=== PATIENT | female | born 1970 | race Caucasian/White ===

== ENCOUNTER 2022-06-07 11:29 | Outpatient (CLI) | payer OTHER, SELFPAY ==
[2022-06-07 21:49] LABS: Chloride* 101 mmol/L (96-114)
[2022-06-07 21:52] LABS: Albumin* 4.8 g/dL (3.3-5.0); Creatinine* 1.4 mg/dL (0.5-1.5); Estimated Glomerular Filt Rate 46 ml/min; Potassium* 4.2 mmol/L (3.6-5.1); Sodium* 140 mmol/L (135-149)
[2022-06-07 21:53] LABS: Alanine Aminotransferase* 46 U/L (4-35); Alkaline Phosphatase* 200 U/L (40-150); Aspartate Amino Transferase* 68 U/L (12-35); Bilirubin Total* 1.1 mg/dL (0.1-1.5); Blood Urea Nitrogen* 27 mg/dL (7-30); Carbon Dioxide* 25 mmol/L (20-32); Glucose* 98 mg/dL (60-115); Total Protein* 8.2 g/dL (6.0-8.3)
[2022-06-07 21:54] LABS: Calcium* 9.7 mg/dL (8.4-10.6)
== END 2022-06-07 11:30 | disposition home or self-care (01) ==
LOC: FRMREF 11:30
PROVIDERS: Visit Provider Dermatology
DX: Z79.899 Other long term (current) drug therapy (principal); L40.9 Psoriasis, unspecified
CPT/HCPCS: 80053

== ENCOUNTER 2022-06-20 10:22 | Outpatient (CLI) | payer OTHER, SELFPAY ==
--- NOTE | 2022-06-20 10:15 | CRLHL7_ITS ---
For Patients: As a result of the Century Cures Act, medical imaging exams and procedure reports are released immediately into your electronic medical record. You may view this report before your referring provider. If you have questions, please contact your health care provider. BILATERAL SCREENING MAMMOGRAM WITH COMPUTER-AIDED DETECTION AND TOMOSYNTHESIS TECHNIQUE: CC and MLO views were obtained. These mammographic images have been obtained using full-field digital technique. These mammographic images were interpreted with the benefit of computer-aided detection. Breast Tomosynthesis was used in this interpretation. COMPARISON FILM: 09/11/19, 12/23/17, 05/16/16. FINDINGS: There are scattered areas of fibroglandular density IMPRESSION: There is no radiographic evidence for malignancy. ASSESSMENT: BI-RADS Category 1: Negative RECOMMENDATION: Routine screening mammogram in 1 year. A lay language report of this examination will be provided to the patient. Robbie Franco M.D. Diagnostic Radiologist [email or web address] SANTOSH/Dictated by: Robbie Franco MD @ 06/22/2022 9:07:00 AM (Electronically Signed)
== END 2022-06-20 10:23 | disposition home or self-care (01) ==
LOC: MAMMO 10:24
PROVIDERS: Visit Provider Nurse Practitioner Family
DX: Z12.31 Encounter for screening mammogram for malignant neoplasm of breast (principal)
CPT/HCPCS: 77063; 77067

== ENCOUNTER 2022-09-28 13:57 | Outpatient (CLI) | payer OTHER, SELFPAY ==
[2022-09-28 16:22] LABS: Basophils Absolute Auto 0.03 K/uL (0.00-0.30); Basophils Percent Auto 0.6 % (0.0-3.0); Eosinophils Absolute Auto 0.16 K/uL (0.00-0.50); Eosinophils Percent Auto 3.1 % (0.0-7.0); Hematocrit 44.5 % (33.0-51.0); Hemoglobin* 14.7 gm/dL (12.0-16.0); Lymphocytes Absolute Auto 1.43 K/uL (0.90-2.90); Lymphocytes Percent Auto 27.9 % (20-44); Mean Corpuscular HGB Conc 33 gm/dL (32-36); Mean Corpuscular Hemoglobin 33 pg (26-34); Mean Corpuscular Volume 101 fL (80-100); Monocytes Percent Auto 8.8 % (0.0-11.0); Neutrophils Absolute Auto 3.06 K/uL (1.7-7.0); Neutrophils Percent Auto 59.6 % (42.0-72.0); Platelet Count* 259 K/uL (140-440); White Blood Count* 5.13 K/uL (4.50-11.00)
[2022-09-28 16:31] LABS: Chloride* 108 mmol/L (96-114)
[2022-09-28 16:32] LABS: Potassium* 4.4 mmol/L (3.6-5.1); Sodium* 143 mmol/L (135-149)
[2022-09-28 16:34] LABS: Creatinine* 0.7 mg/dL (0.5-1.5); Estimated Glomerular Filt Rate 105 ml/min; Slide Review Reflex No
[2022-09-28 16:35] LABS: Blood Urea Nitrogen* 12 mg/dL (7-30); Calcium* 9.9 mg/dL (8.4-10.6); Carbon Dioxide* 22 mmol/L (20-32); Glucose* 99 mg/dL (60-115)
[2022-09-28 17:08] LABS: TSH With Reflex to FT4* 0.999 uIU/mL (0.270-4.200)
[2022-09-30 22:28] LABS: Vitamin D, 1,25-Dihydroxy 57.5 pg/mL (19.9-79.3)
== END 2022-09-28 13:58 | disposition home or self-care (01) ==
PROVIDERS: Visit Provider Nurse Practitioner Family
DX: R53.83 Other fatigue (principal); I10 Essential (primary) hypertension
CPT/HCPCS: 80048; 82652; 84443; 85025

== ENCOUNTER 2023-01-15 11:39 | Outpatient (CLI) | payer BC, SELFPAY | END 2023-01-15 11:40 | disposition home or self-care (01) | LOC: NFLDREF 01-16 01:21 | PROVIDERS: PCP Nurse Practitioner Family; Referring Provider Nurse Practitioner Family; Visit Provider Dermatology | DX: R53.83 Other fatigue (principal); I10 Essential (primary) hypertension; L40.9 Psoriasis, unspecified; Z79.631 Long term (current) use of antimetabolite agent | CPT/HCPCS: 80053 ==